=== PATIENT | female | born 1985 | race Caucasian/White ===

== ENCOUNTER 2019-07-28 15:54 | Emergency (ER) | payer BC ==
[2019-07-28] MEDS: Sodium Chloride 0.9% 1,000 ML IV ONE ×2 (16:40→17:45)
[2019-07-28] MEDS: Ondansetron 4 MG/2 ML SDV IVPUSH ONE (16:45)
[2019-07-28] MEDS: Ondansetron 4 MG/2 ML SDV ONE (18:20)
--- NOTE | 2019-07-30 08:09 | EDM.PDOC ---
ED HPI GENERAL MEDICAL PROBLEM - General Chief Complaint: General Stated Complaint: DEHYDRATION Time Seen by Provider: 07/28/19 17:18 Source of Information: Reports: Patient History Limitations: Reports: No Limitations - History of Present Illness INITIAL COMMENTS - FREE TEXT/NARRATIVE: Connie presents for dehydration. She has had ongoing issues with n/v throughout her . She came in after failing conservative measures, including trying to keep food in her stomach. No abd pain, ctx's, vag bleeding , or gu issues. She is following with Dr. Karen Cameron in [place]. Plentiful movement. No fever or breathing trouble. Past Medical History - Past Health History Medical/Surgical History: Denies Medical/Surgical History [employer] History: Reports: Spontaneous Social & Family History - Tobacco Use Smoking Status *Q: Never Smoker Second Hand Smoke Exposure: No - Caffeine Use Caffeine Use: Reports: None - Recreational Drug Use Recreational Drug Use: No ED ROS GENERAL - Review of Systems Review Of Systems: Comprehensive ROS is negative, except as noted in HPI. ED EXAM, GENERAL - Physical Exam Exam: See Below Exam Limited By: No Limitations General Appearance: Alert, WD/WN, No Apparent Distress Eye Exam: Bilateral Eye: EOMI, PERRL Ears: Normal External Exam, Hearing Grossly Normal Nose: Normal Inspection, Normal Mucosa, No Blood Throat/Mouth: Normal Inspection, Normal Lips, Normal Teeth, Normal Oropharynx Head: Atraumatic, Normocephalic Neck: Normal Inspection, Supple, Non-Tender Respiratory/Chest: No Respiratory Distress, Lungs Clear, Normal Breath Sounds Cardiovascular: Regular Rate, Rhythm, No Murmur GI/Abdominal: Normal Bowel Sounds, Soft, No Distention Back Exam: Normal Inspection, Full Range of Motion Extremities: Normal Inspection, Normal Range of Motion, No Pedal Edema, Normal Capillary Refill Neurological: Alert, Oriented, Normal Cognition, No Motor/Sensory Deficits Psychiatric: Normal Affect, Normal Mood Skin Exam: Warm, Dry Lymphatic: No Adenopathy Course - Vital Signs Last Recorded V/S: Last Vital Signs Temp 98.2 F 07/28/19 16:15 Pulse 111 H 07/28/19 17:26 Resp 16 07/28/19 18:46 BP 123/73 07/28/19 18:46 Pulse Ox 99 07/28/19 18:46 - Orders/Labs/Meds Meds: Medications Discontinued Medications Generic Name Dose Route Start Last Admin Trade Name Rema PRN Reason Stop Dose Admin Sodium Chloride 1,000 mls @ 999 mls/hr 07/28/19 16:46 07/28/19 16:40 Normal Saline IV 07/28/19 17:46 999 mls/hr .BOLUS ONE Administration Sodium Chloride 1,000 mls @ 999 mls/hr 07/28/19 18:17 07/28/19 17:45 Normal Saline IV 07/28/19 19:17 999 mls/hr .BOLUS ONE Administration Ondansetron HCl Confirm 07/28/19 16:48 07/28/19 18:20 Zofran Administered 07/28/19 16:49 Not Given Dose 4 mg .ROUTE .STK-MED ONE Ondansetron HCl 4 mg 07/28/19 16:44 07/28/19 16:45 Zofran IVPUSH 07/28/19 16:45 4 mg ONETIME ONE Administration - Re-Assessments/Exams Free Text/Narrative Re-Assessment/Exam: Had a very long discussion regarding medication issues in , including the use of zofran as reviewed in [facility]od[facility]. Also discussed complimentary measures and offered to help her coordinate her ongoing management needs. She is certainly is in the best of hands with Dr. Cameron. 07/30/19 18:30 Departure - Departure Time of Disposition: 18:00 Disposition: Home, Self-Care 01 Condition: Good, Fair Clinical Impression: Dehydration - Discharge Information *PRESCRIPTION DRUG MONITORING PROGRAM REVIEWED*: No *COPY OF PRESCRIPTION DRUG MONITORING REPORT IN PATIENT CLAUDIA: No Instructions: Nausea and Vomiting, Adult, [id number] Referrals: PCP,None [Primary Care Provider] - Forms: ED Department Discharge Care Plan Goals: Take medications as needed for nausea, Continue to drink plenty of fluids. Return to clinic or hospital if symptoms return. May try to eat some popsickles or jello tonight. Sepsis Event Note - Evaluation Sepsis Screening Result: No Definite Risk - Focused Exam Date Exam was Performed: 08/04/19 Time Exam was Performed: 09:37
== END 2019-07-28 18:53 | disposition home or self-care (01) ==
LOC: LB.ED 15:54
DX: E86.0 Dehydration (principal); R11.2 Nausea with vomiting, unspecified
CPT/HCPCS: 96361; 96374; 99284-25; J2405; J7030

== ENCOUNTER 2021-11-29 20:17 | Emergency (ER) | payer BC | END 2021-11-29 20:51 | LOC: LB.ED 20:17 | DX: H53.131 Sudden visual loss, right eye (principal); Z88.0 Allergy status to penicillin | CPT/HCPCS: 99283 ==

== ENCOUNTER 2023-05-11 09:53 | Emergency (ER) | payer BC ==
[2023-05-11] MEDS ORDERED: prednisoLONE Syrup 5 MG/5 ML ML 120 ML Bottle PO ONE (10:05)
== END 2023-05-11 10:54 | disposition home or self-care (01) ==
LOC: LB.ED 09:53
DX: R07.89 Other chest pain (principal); Z91.018 Allergy to other foods; Z88.1 Allergy status to other antibiotic agents
CPT/HCPCS: 99283; 99284; J7510